=== PATIENT | female | born 1935 | race Asian ===

== ENCOUNTER 2019-07-20 08:30 | Emergency (ER) | payer MEDICARE ==
[2019-07-20 08:47] VITALS: BP 162/75
[2019-07-20] MEDS ORDERED: IBUPROFEN 400 MG TAB PO ONE (09:06)
[2019-07-20] MEDS ORDERED: ACETAMINOPHEN 500 MG TAB PO ONE (09:06)
--- NOTE | 2019-07-20 09:07 | Emergency Department Report ---
ED Lower Extremity HPI - General Chief Complaint: Extremity Injury, Lower Stated Complaint: PAIN IN RT KNEE AND HIP Time Seen by Provider: 07/20/19 08:52 Source: patient, family, RN notes reviewed Mode of arrival: Wheelchair Limitations: No Limitations - History of Present Illness Initial Comments: This is a pleasant 83-year-old female. This patient is not known to this provider previously. Her primary care doctor is at [facility] the entire history and physical examination, I am media sales executive and escorted by nurse Janine Nice The patient presents to the emergency room today with a complaint of nontraumatic right-sided hip pain/iliac crest pain, that moves down the anterior and lateral aspect of the right thigh. This is been present for a few days. It decreases with rest, and increases with palpation, range of motion and exertion. She makes no complaint of midline lower back pain, abdominal pain, flank pain, and she denies bladder or bowel retention, incontinence, and she denies saddle anesthesia. She has no additional complaints. MD Complaint: other -: days(s) Injury: Hip: Right, Thigh: Right Place: other Improves With: other Worsens With: other Context: other Other Symptoms: other - Related Data Allergies Allergy/AdvReac Type Severity Reaction Status Date / Time No Known Allergies Allergy Unverified 07/20/19 08:31 ED Review of Systems ROS: Stated complaint: PAIN IN RT KNEE AND HIP Other details as noted in HPI Comment: per hpi Constitutional: denies: fever Cardiovascular: denies: syncope Gastrointestinal: denies: abdominal pain, nausea, vomiting Genitourinary: denies: dysuria Musculoskeletal: arthralgia, myalgia Neurological: paresthesias. denies: weakness ED Past Medical Hx - Past Medical History Hx Hypertension: Yes - Surgical History Past Surgical History?: No - Social History Smoking Status: Never Smoker ED Physical Exam - General Limitations: No Limitations General appearance: alert, in no apparent distress, obese - Head Head exam: Present: atraumatic, normocephalic - Eye Eye exam: Present: normal appearance, EOMI. Absent: nystagmus - ENT ENT exam: Present: normal exam, normal orophraynx, mucous membranes moist, normal external ear exam - Neck Neck exam: Present: normal inspection, full ROM. Absent: tenderness, meningismus - Respiratory Respiratory exam: Present: normal lung sounds bilaterally. Absent: respiratory distress - Cardiovascular Cardiovascular Exam: Present: regular rate, normal rhythm, normal heart sounds. Absent: bradycardia, tachycardia, irregular rhythm, systolic murmur, diastolic murmur, rubs, gallop - GI/Abdominal GI/Abdominal exam: Present: soft. Absent: distended, tenderness, guarding, rebound, rigid, pulsatile mass - Extremities Exam Extremities exam: Present: normal inspection, full ROM, other (2+ pulses noted in the bilateral upper, lower extremities. There is no long bone tenderness. Musculoskeletal compartments are soft. The pelvis is stable.). Absent: tenderness, pedal edema, joint swelling, calf tenderness - Back Exam Back exam: Present: normal inspection. Absent: tenderness, CVA tenderness (R), paraspinal tenderness, vertebral tenderness - Neurological Exam Neurological exam: Present: alert (downgoing plantar reflexes bilaterally), oriented X3, normal gait, other (there is no facial droop. The tongue is midline. Extraocular movements are intact bilaterally. Patient speaking in full complete sentences. Shoulder shrug is intact bilaterally. Hearing is grossly intact bilaterally. Visual acuity intact to finger counting and color perception at a close distance. 5/5 strength 4 extremities. Sensation intact to light touch in 4 extremities.). Absent: motor sensory deficit - Psychiatric Psychiatric exam: Present: normal affect, normal mood - Skin Skin exam: Present: warm, dry, intact, normal color. Absent: rash ED Course Vital Signs 07/20/19 07/20/19 08:46 09:15 Temperature 98.3 F Pulse Rate 65 Respiratory 18 16 Rate Blood Pressure 162/75 O2 Sat by Pulse 100 Oximetry ED Lower Extremity MDM - Lab Data Vital Signs 07/20/19 07/20/19 08:46 09:15 Temperature 98.3 F Pulse Rate 65 Respiratory 18 16 Rate Blood Pressure 162/75 O2 Sat by Pulse 100 Oximetry - Medical Decision Making Differential diagnosis, including but not limited to: Radiculopathy, meralgia paresthetica, arthritis Assessment and plan: 83-year-old female with lower extremity radicular symptoms. She is afebrile with reassuring vital signs and walks with a steady gait. There is no neurovascular deficit in the lower extremity, there is no pulsatile abdominal mass, and she makes no complaints of any symptoms that would heralds an acute cord compression. We discussed expectant management, and conservative management. The patient does not appear to have an emergent medical condition at this time. She'll need to follow-up with her primary care doctor. She may benefit from physical therapy, and complementary therapy, which we discussed with her family member. Critical care attestation.: If time is entered above; I have spent that time in minutes in the direct care of this critically ill patient, excluding procedure time. ED Disposition Clinical Impression: Radicular pain Disposition: DC- TO HOME OR SELFCARE Is pt being admited?: No Does the pt Need Aspirin: No Condition: Stable Instructions: Lumbar Radiculopathy (ED) Additional Instructions: Rest, avoid heavy lifting, and avoid strenuous physical activity. Patient may alternate ice packs, heat packs, take Tylenol [id number] 500 mg every 4-6 hours as needed for pain, alternating with Motrin [id number], 400 mg with food every 6 hours, as needed for pain. Patient should follow-up with her outpatient primary care doctor for this presumed nerve related/radicular pain within the next 2 weeks. Patient may benefit from physical therapy, and she should follow-up with her outpatient primary care doctor for a physical therapy referral. In addition, patient may find relief from complementary therapy, such as massage, acupuncture, hot tub therapy. Please return to emergency room right away with new, worsened, different symptoms, or symptoms not present on the initial emergency room evaluation. Recommend follow-up with primary care doctor within the next 2 weeks. Referrals: PRIMARY CAREMD [Referring] - as needed ([place] [address] [place] [id number] [facility] [place])
== END 2019-07-20 10:26 | disposition home or self-care (01) ==
LOC: ED 08:30
DX: M54.16 Radiculopathy, lumbar region (principal); I10 Essential (primary) hypertension
CPT/HCPCS: 99282